=== PATIENT | female | born 1965 | race Caucasian/White ===

== ENCOUNTER 2018-05-29 16:51 | Emergency (ER) | payer BC ==
[2018-05-29] MEDS ORDERED: ONDANSETRON HCL IV 4 MG/2 ML VIAL IVP ONE (17:43)
--- NOTE | 2018-05-29 17:44 | Emergency Department Record ---
History of Present Illness - General Chief complaint: Nausea, Vomiting, Diarrhea Stated complaint: NAUSEA AND VOMITING Time Seen by Provider: 05/29/18 17:38 Source: Patient, Family Mode of Arrival: Ambulatory Limitations: No limitations - History of Present Illness Initial comments: 53 yo female presents with nausea, vomiting and diarrhea that started mid- afternoon. She felt fine prior to the onset of the NVD. NO fever or blood. Her is with her in the ED. He had similar symptoms earlier this week with sudden onset NVD. His symptoms have resolved. No recent antibiotics. No travel. No cough. She has recently had an extensive work up for palpitations with [facility]. She states all testing have been normal to date (Holter, ECHO, EKG's) . NO syncope or palpitations currently. MD complaint: Diarrhea, Nausea, Vomiting Description of Vomiting: Watery Associated Abdominal Pain: Yes Location: Diffuse Improves with: None Worsens with: None Associated Symptoms: Nausea/vomiting - Related Data Home Medications Medication Instructions Recorded Confirmed Last Taken Alprazolam [Xanax] 0.25 mg PO QHS 05/29/18 05/29/18 Unknown Diltiazem HCl 120 mg PO DAILY 05/29/18 05/29/18 Unknown Duloxetine HCl [Cymbalta] 20 mg PO DAILY 05/29/18 05/29/18 Unknown Hydroxychloroquine Sulfate 200 mg PO DAILY 05/29/18 05/29/18 Unknown [Plaquenil] Ibuprofen 200 mg PO DAILY 05/29/18 05/29/18 Unknown Tramadol HCl 50 mg PO DAILY 05/29/18 05/29/18 Unknown Previous Rx's Medication Instructions Recorded Ondansetron [Zofran Odt] 4 mg PO Q8H #15 tab.rapdis 05/29/18 Allergies Allergy/AdvReac Type Severity Reaction Status Date / Time amoxicillin [From Augmentin] Allergy PT UNSURE Verified 05/29/18 17:12 OF REACTION clavulanic acid Allergy PT UNSURE Verified 05/29/18 17:12 [From Augmentin] OF REACTION droperidol [From Inapsine] Allergy PT UNSURE Verified 05/29/18 17:12 OF REACTION Sulfa (Sulfonamide Allergy PT UNSURE Verified 05/29/18 17:12 Antibiotics) OF REACTION Travel Screening - Travel/Exposure Within Last 30 Days Have you traveled within the last 30 days?: No Review of Systems Constitutional: Reports: Chills. Denies: Fever, Malaise, Weakness Eyes: Denies: Eye discharge ENT: Denies: Congestion, Throat pain Respiratory: Denies: Cough, Dyspnea Cardiovascular: Denies: Chest pain, Syncope Endocrine: Denies: Fatigue, Polydipsia, Polyuria Gastrointestinal: Reports: Diarrhea, Nausea, Vomiting. Denies: Abdominal pain, Constipation, Hematemesis, Hematochezia, Melena Genitourinary: Denies: Dysuria, Urgency Musculoskeletal: Denies: Arthralgia, Back pain, Myalgia Skin: Denies: Bruising, Change in color, Rash Neurological: Denies: Headache, Numbness, Vertigo, Weakness Psychiatric: Reports: Anxiety Hematological/Lymphatic: Denies: Easy bleeding, Easy bruising Past Medical History - SOCIAL HISTORY Smoking Status: Never smoker Alcohol Use: None Drug Use: None - RESPIRATORY Hx Respiratory Disorders: No - CARDIOVASCULAR Hx Cardio Disorders: Yes Comment:: fast heart rate - NEURO Hx Neuro Disorders: No - GI Hx GI Disorders: No - Hx Genitourinary Disorders: No - ENDOCRINE Hx Endocrine Disorders: No - MUSCULOSKELETAL Hx Musculoskeletal Disorders: Yes Hx Arthritis: Yes Comment:: c spine stenosis - PSYCH Hx Psych Problems: Yes Hx Anxiety: Yes Hx Depression: Yes - HEMATOLOGY/ONCOLOGY Hx Hematology/Oncology Disorders: No Family Medical History Any Significant Family History?: No Physical Exam - General General Appearance: Alert, Oriented x3, Cooperative, No acute distress Limitations: No limitations - Head Head exam: Atraumatic, Normal inspection - Eye Eye exam: Normal appearance. negative: Conjunctival injection - ENT ENT exam: Normal exam Ear exam: Normal external inspection. negative: External canal tenderness Nasal Exam: Normal inspection. negative: Discharge, Sinus tenderness Mouth exam: Normal external inspection, Tongue normal Teeth exam: Normal inspection. negative: Dental caries Throat exam: Normal inspection. negative: Tonsillar erythema, Tonsillar exudate - Neck Neck exam: Normal inspection - Respiratory Respiratory exam: Normal lung sounds bilaterally. negative: Accessory muscle use, Decreased breath sounds, Rhonchi, Stridor, Wheezes - Cardiovascular Cardiovascular Exam: Regular rate, Normal rhythm, Normal heart sounds Peripheral Pulses: 2+: Radial (R), Radial (L) - GI/Abdominal GI/Abdominal exam: Soft. negative: Guarding, Tenderness - Rectal Rectal exam: Deferred - exam: Deferred - Extremities Extremities exam: Normal inspection. negative: Tenderness - Back Back exam: Denies: CVA tenderness (R), CVA tenderness (L) - Neurological Neurological exam: Alert, Oriented X3 - Psychiatric Psychiatric exam: Anxious - Skin Skin exam: Dry, Intact, Normal color, Warm Course Vital Signs 05/29/18 17:06 Temperature 98.2 F Pulse Rate 82 Respiratory 18 Rate Blood Pressure 112/75 Pulse Ox 99 - Reevaluation(s) Reevaluation #1: Vitals reviewed. No acute significant abnormalities. 05/29/18 17:47 05/29/18 18:20 The CBC was reviewed WBC is 14 05/29/18 19:04 The CMP was reviewed No acute changes The patient is feeling greatly improved The Fluids are complete. She is ready for DC We discussed home care and reasons to return to the ED Medical Decision Making - Lab Data Result diagrams: 05/29/18 17:17 05/29/18 17:17 Disposition Disposition: Discharge Clinical Impression: Vomiting and diarrhea Disposition: Home, Self-Care Condition: (1) Good Instructions: Acute Nausea and Vomiting (ED) Additional Instructions: Rest and stay hydrated with small frequent amounts of fluid. Return if worse, fever, uncontrolled vomiting or diarrhea Prescriptions: Ondansetron [Zofran Odt] 4 mg PO Q8H #15 tab.rapdis Forms: Patient Portal Access Time of Disposition: 19:05 Quality - Quality Measures Quality Measures: N/A - Blood Pressure Screening Does Patient Have Any of the Following: No Blood Pressure Classification: Normal BP Reading Systolic Measurement: 112 Diastolic Measurement: 75 Screening for High Blood Pressure: < Normal BP, F/U Not Required > [G8783]
[2018-05-29 18:13] LABS: HEMATOCRIT 50.3 % (35.0-47.0); HEMOGLOBIN 16.7 gm/dl (11.6-16.0); MEAN CELL VOLUME 89.5 fl (81-97); MEAN CORPUSCULAR HEMOGLOBIN 29.7 pg (27-33); MEAN CORPUSCULAR HGB CONC 33.2 g/dl (32-36); MEAN PLATELET VOLUME 11.3 fl (7.4-10.4); PLATELET COUNT 214 K/uL (130-400); RED BLOOD COUNT 5.62 M/uL (3.80-5.40); RED CELL DISTRIBUTION WIDTH 12.1 % (11.5-14.5); WHITE BLOOD COUNT W/O DIFF 14.3 K/uL (4.2-12.2)
[2018-05-29 18:21] LABS: PLATELET ESTIMATE NORMAL (NORMAL)
[2018-05-29 18:25] LABS: BLOOD UREA NITROGEN 31 mg/dL (6-20); CREATININE 0.8 mg/dL (0.5-0.9); EST GLOMERULAR FILTRATION RATE > 60 mL/min
[2018-05-29 18:28] LABS: GLUCOSE,RANDOM 129 mg/dL (74-109)
[2018-05-29] MEDS ORDERED: ONDANSETRON 4 MG ODT TABLET SL ONE (19:04)
[2018-05-29] MEDS: ONDANSETRON 4 MG ODT TABLET SL ONE (19:07)
== END 2018-05-29 19:13 | disposition home or self-care (01) ==
LOC: ER 16:51
DX: R11.2 Nausea with vomiting, unspecified (principal); R19.7 Diarrhea, unspecified
CPT/HCPCS: 99284 ×2; 96374; 83735; 80048; 85027; J2405